=== PATIENT | female | born 1955 | race Caucasian/White ===

== ENCOUNTER → 2023-11-01 12:31 | Outpatient (BNVA) | payer MEDICARE, SELFPAY | PROVIDERS: PCP Family Medicine; Visit Provider Family Medicine | DX: R30.0 Dysuria (principal) | CPT/HCPCS: 81000; 87086 ==

== ENCOUNTER 2024-01-04 13:07 | Outpatient (CLI) | payer MEDICARE, SELFPAY ==
--- NOTE | 2024-01-04 13:13 | MM_ITS ---
WS: [id number] Bilateral screening 3D tomosynthesis digital mammogram, 01/04/2024 1:14 PM Clinical Data: SCREEN Comparison: None. Findings: No spiculated masses or clustered calcifications are seen. There are no secondary signs of carcinoma . MM/MM scr BI tomosynthesis [id number] Impression: Negative bilateral mammogram unchanged. Recommend annual screening mammograms. BIRADS: 1 - Negative. FOLLOW UP: 1 Year Follow-up DENSITY: There are scattered areas of fibroglandular density. The CAD design checker was used
--- NOTE | 2024-01-04 13:17 | XR_ITS ---
WS: [id number] SCREENING DEXA SCAN [facility] CLINICAL INFORMATION: POSTMENOPAUSAL STATUS COMPARISON: None. FINDINGS: The L1-L4 bone mineral density measures 1.217 g/cm2. This corresponds to a T score score of 0.3 and Z score of 1.0. Left femoral neck bone mineral density measures 0.931 g/cm2. This corresponds to a T score of -0.6 an d Z score of 0.1. Right femoral neck bone mineral density measures 1.046 g/cm2. This corresponds to a T score 0.3of and Z score of 1.0. Mean femoral neck bone mineral density measures 0.989 g/cm2. This corresponds to a T score of -0.2 an d Z score of 0.6. XR/XR DEXA axial skeleton* [id number] IMPRESSION: Normal bone mineralization lumbar spine. Normal bone mineralization femoral nec ks. Patient's FRAX calculated 10 year probability for major osteoporotic fracture i s 8.5% and osteoporotic hip fracture is 1.0%.
== END 2024-01-04 13:08 | disposition home or self-care (01) ==
PROVIDERS: PCP Family Medicine; Visit Provider Family Medicine
DX: Z12.31 Encounter for screening mammogram for malignant neoplasm of breast (principal); Z13.820 Encounter for screening for osteoporosis
CPT/HCPCS: 77063; 77067; 77080

== ENCOUNTER → 2024-01-14 14:06 | Outpatient (BNVA) | payer MEDICARE, SELFPAY | PROVIDERS: PCP Family Medicine; Visit Provider Family Medicine | DX: R82.90 Unspecified abnormal findings in urine (principal); I10 Essential (primary) hypertension; G89.29 Other chronic pain; M79.7 Fibromyalgia; F41.9 Anxiety disorder, unspecified | CPT/HCPCS: 87077; 87086; 87184 ==

== ENCOUNTER → 2024-05-16 11:55 | Outpatient (BNVA) | payer MEDICARE, SELFPAY | PROVIDERS: PCP Family Medicine; Visit Provider Family Medicine | DX: N39.3 Stress incontinence (female) (male) (principal); N39.0 Urinary tract infection, site not specified; G89.4 Chronic pain syndrome; M79.7 Fibromyalgia; M15.0 Primary generalized (osteo)arthritis; K76.0 Fatty (change of) liver, not elsewhere classified; F41.9 Anxiety disorder, unspecified | CPT/HCPCS: 87086 ==

== ENCOUNTER → 2024-11-25 08:38 | Outpatient (BNVA) | payer MEDICARE, SELFPAY | PROVIDERS: PCP Family Medicine; Visit Provider Family Medicine | DX: I10 Essential (primary) hypertension (principal); Z98.84 Bariatric surgery status; K76.0 Fatty (change of) liver, not elsewhere classified; R51.9 Headache, unspecified; Z86.69 Personal history of other diseases of the nervous system and sense organs; R61 Generalized hyperhidrosis; R09.89 Other specified symptoms and signs involving the circulatory and respiratory systems; Z13.6 Encounter for screening for cardiovascular disorders | CPT/HCPCS: 80053; 82607; 83615; 84145; 84443; 85025; 87806 ==

== ENCOUNTER 2024-12-04 07:44 | Outpatient (CLI) | payer MEDICARE, SELFPAY ==
--- NOTE | 2024-12-04 08:00 | MR_ITS ---
WS: [id number] MRI BRAIN WITHOUT CONTRAST HISTORY: new headaches, seizure like activity COMPARISON: None available. TECHNIQUE: Diffusion imaging, multiplanar T1, T2 and FLAIR imaging obtained. No diffusion abnormality. Mild small vessel ischemic changes in the supratentorial white matter. No prior infarct. No hemorrhage. Normal hippocampal formations. Mild cerebral atrophy. Ventricles and extra-axial spaces are normal. No inferior displacement of cerebellar tonsils. The sella turcica and pituitary gland are unremarkable. Dural venous sinuses and [place] of [place] demonstrate no abnormality on this unenhanced studies. Paranasal sinuses: Mild mucoperiosteal thickening RIGHT maxillary sinus. Mastoid air cells: Small amount of fluid in the tips of each mastoid air cell. Calvarium and scalp: Intact. MR/MR head wo con* [id number] IMPRESSION: 1. No acute hemorrhage or acute infarct. 2. Mild small vessels ischemic changes. 3. No prior large territory infarct. 4. Normal hippocampal formations.
== END 2024-12-04 07:45 | disposition home or self-care (01) ==
LOC: RAD 07:46
PROVIDERS: PCP Family Medicine; Visit Provider Family Medicine
DX: R51.9 Headache, unspecified (principal); Z86.69 Personal history of other diseases of the nervous system and sense organs; R93.0 Abnormal findings on diagnostic imaging of skull and head, not elsewhere classified; G31.89 Other specified degenerative diseases of nervous system; J34.89 Other specified disorders of nose and nasal sinuses; H74.8X3 Other specified disorders of middle ear and mastoid, bilateral
CPT/HCPCS: 70551